=== PATIENT | male | born 1955 | race Caucasian/White ===

== ENCOUNTER 2021-09-05 11:49 | Outpatient (CLI) | payer BC, SELFPAY ==
--- NOTE | ~2021-09-05 | PE_ITS ---
EXAMINATION: PET skull to mid thigh DATE: 09/05/2021 13:54 INDICATION: Abnormal findings on diagnostic imaging. TECHNIQUE: Blood glucose level was 93 mg/dL. 9.352 mCi of 18-fluorodeoxyglucose (18-FDG) was administ ered i.v. Low dose computed tomography (CT) images were acquired from the base of the brain to the pr oximal thighs for attenuation correction and anatomic localization. Automated exposure control was em ployed. Dose-length product (DLP) was 1066 mGy-cm. Positron emission tomography (PET) images were acq uired in the same distribution. COMPARISON: None FINDINGS: Head/neck: There is increased activity in the major salivary glands, nasopharynx, oral cavity, and gl ottis without abnormal CT correlate, likely physiologic. There are no pathologically enlarged lymph n odes. Chest: There is moderate emphysema. There are airspace opacities at right lung apex measuring up to 2 .6 x 1.4 cm with maximum SUV of 3.3. There is a 6 mm nodule in left lower lobe without increased acti vity, probably benign. There is mild atelectasis bilaterally. No pleural effusion. The heart size is normal. There are coronary artery calcifications. No pericardial effusion. Abdomen/pelvis/proximal thighs: The liver, spleen, gallbladder, pancreas, adrenal glands, and right k idney are normal. There is a 5.7 cm cyst in left kidney. There are no dilated loops of bowel. There a re no dilated loops of bowel. There are no pathologically enlarged lymph nodes. There is no free intr aperitoneal fluid. There is 5 finding will canals that may be hernias. There is no osseous malignancy . IMPRESSION: 1. Airspace opacities at right lung apex with increased activity, most likely infection or granulomat ous disease. Neoplasm cannot be excluded. Consider noncontrast chest CT in 3 months. 2. 6 mm left lower lobe pulmonary nodule without increased activity, probably benign. Reviewed, dictated and finalized at location A. IMPRESSION: 1. Airspace opacities at right lung apex with increased activity, most likely i nfection or granulomatous disease. Neoplasm cannot be excluded. Consider noncon trast chest CT in 3 months. 2. 6 mm left lower lobe pulmonary nodule without increased activity, probably b enign.
[2021-09-05 13:59] LABS: Glucose Point of Care 93 mg/dl (65-105)
== END 2021-09-05 11:50 | disposition home or self-care (01) ==
PROVIDERS: PCP Internal Medicine; Visit Provider Nurse Practitioner
DX: R93.89 Abnormal findings on diagnostic imaging of other specified body structures (principal); R91.8 Other nonspecific abnormal finding of lung field
CPT/HCPCS: 78815; A9552

== ENCOUNTER 2022-09-10 14:32 | Outpatient (CLI) | payer BC, SELFPAY ==
--- NOTE | ~2022-09-10 | CT_ITS ---
Non-contrast CT scan of the Abdomen and Pelvis Clinical indication: Abdominal aortic aneurysm Technique: 2.5 mm axial scans were obtained through the abdomen and pelvis without intravenous or or al contrast. Dose reduction technique was used on this scan by utilizing automated exposure control a nd iterative reconstruction technique. The dose-length product (DLP) was 1038.58 mGy-cm. COMPARISON: PET/CT dated 09/05/2021 Findings: Images through the lung bases reveal mild emphysema. There is no evidence of renal or ureteral calculi. The kidneys and the ureters are nondilated. Left r enal cyst noted. The liver, spleen, pancreas, gallbladder, and adrenals appear normal. There are atherosclerotic calci fications of the aorta. Infrarenal abdominal aorta measures up to a maximum of 3 cm in diameter. There is no evidence of bowel obstruction. Images through the pelvis were performed. There is no evidence of ascites or lymphadenopathy. Urinary bladder unremarkable. Prostate gland and seminal vesicles are unremarkable. Impression: Ectasia of the infrarenal abdominal aorta, which measures up to a maximum of 3 cm in diameter. Mild emphysema. Reviewed, dictated and finalized at location . Impression: Ectasia of the infrarenal abdominal aorta, which measures up to a maximum of 3 cm in diameter. Mild emphysema.
== END 2022-09-10 14:33 | disposition home or self-care (01) ==
PROVIDERS: PCP Internal Medicine; Visit Provider Internal Medicine
DX: I71.40 Abdominal aortic aneurysm, without rupture, unspecified (principal); J43.9 Emphysema, unspecified
CPT/HCPCS: 74176